=== PATIENT | female | born 1995 | race Caucasian/White ===

== ENCOUNTER 2018-01-02 11:49 | Emergency (ER) | payer BC, MEDICAID ==
[~2018-01-02] VITALS: Ht 152.4 cm; Wt 62.0 kg
[~2018-01-02 11:49] MED LIST: CIPR500T2 PO; EPIP0.3I IM; [UNRECOGNIZED DRUG - OTHER]
[2018-01-02 11:51] VITALS: BP 134/59; PULSE 106; RESP 24; TEMP 98.8; O2SAT 98
[2018-01-02] MEDS ORDERED: PROCHLORPERAZINE INJ 10 MG/2 ML VIAL IV PUSH ONE (12:30)
[2018-01-02] MEDS ORDERED: diphenhydrAMINE HCL 50 MG/ML VIAL IV PUSH ONE (12:30)
[2018-01-02] MEDS ORDERED: SODIUM CHLOR 0.9% 1000 ML INJ 1,000 ML IV ONE (12:30)
--- NOTE | 2018-01-02 13:54 | PD ---
HPI . Vomiting Chief Complaint: GI Complaint Time Seen by Provider: 12:15 Travel History International Travel<30 days: No Contact w/Intl Traveler<30days: No Traveled to known affect area: No History of Present Illness HPI Patient presents with chief complaint of vomiting. Onset was today. Severity is "a few times." Associated symptom is one episode of loose stools. She denies fever and she denies urinary tract symptoms. She states that she was sent home from work and told that she needed a doctor's note before she could return tomorrow. PFSH Past Medical History Asthma: Yes (childhood ) Blood Disorders: No Anxiety: No Depression: No Cardiovascular Problems: No Diminished Hearing: No Genitourinary: Yes (PRESENT) Musculoskeletal: No Neurologic: No Psychiatric: No Respiratory: Yes Immunizations Current: Yes Sickle Cell Disease: No Influenza Vaccination: No ?: Not LMP: 11/2017 Past Surgical History Surgical History: No Previous Surgery Other Surgery: No Social History Alcohol Use: Yes (1-2 times per week) Tobacco Use: No Substance Use: No Allergies-Medications (Allergen,Severity, Reaction): Coded Allergies: iodine (Verified Allergy, Severe, Anaphylaxis, 01/02/18) Reported Meds & Prescriptions Reported Meds & Active Scripts Active Review of Systems Except as stated in HPI: all other systems reviewed are Neg Physical Exam Narrative GENERAL: Awake and alert and in no acute distress. SKIN: Warm and dry. Normal color and turgor. HEAD: Normocephalic/atraumatic. EYES: Pupils are equal. Extraocular movements are intact. NECK: Normal range of motion. CARDIOVASCULAR: Regular rate and rhythm. RESPIRATORY: Nonlabored respirations. ABDOMEN: Abdomen is soft and nontender. Bowel sounds are present. MUSCULOSKELETAL: Atraumatic. NEUROLOGICAL: Nonfocal. PSYCHIATRIC: Appropriate mood and affect. Data Data Last Documented VS Vital Signs Date Time Temp Pulse Resp B/P (MAP) Pulse Ox O2 Delivery O2 Flow Rate FiO2 01/02/18 11:51 98.8 106 24 134/59 (84) 98 Orders Orders Diphenhydramine Inj (Benadryl Inj) (01/02/18 12:30) Prochlorperazine Inj (Compazine Inj) (01/02/18 12:30) Sodium Chlor 0.9% 1000 Ml Inj (Ns 1000 M (5/7/18 12:30) MDM Medical Decision Making Medical Screen Exam Complete: Yes Emergency Medical Condition: Yes Differential Diagnosis Differential diagnosis includes but is not limited to viral gastritis, food poisoning, pancreatitis, pneumonia, hepatitis, acute coronary syndrome, Narrative Course This patient presents with the chief complaint of vomiting. She has been treated with a liter of fluid and IV Compazine and Benadryl. Her symptoms are markedly improved. Her abdominal exam is benign. She will be discharged home. Diagnosis Primary Impression: Vomiting Qualified Codes: R11.2 - Nausea with vomiting, unspecified Patient Instructions: Acute Nausea and Vomiting (DC), General Instructions Disposition: 01 DISCHARGE HOME Condition: Stable Marielle Jameson MD January 02, 2018 13:54
== END 2018-01-02 14:08 | disposition home or self-care (01) ==
LOC: NEPD 11:49
DX: R11.2 Nausea with vomiting, unspecified (principal)
CPT/HCPCS: 96361; 96374; 96375; 99284; J0780; J1200; J7030